=== PATIENT | female | born 1970 | race Caucasian/White ===

== ENCOUNTER 2017-02-17 08:48 | Emergency (ER) | payer OTHER ==
[~2017-02-17] VITALS: Ht 165.1 cm; Wt 80.0 kg
[2017-02-17] MEDS ORDERED: MOTRIN800 MG PO (09:39)
[2017-02-17] MEDS ORDERED: FLEXERIL10 MG PO (09:39)
[2017-02-17] MEDS ORDERED: PERCOCET 5/31 TABLET PO (09:39)
[2017-02-17 10:13] VITALS: BP 140/91
== END 2017-02-17 10:14 | disposition home or self-care (01) ==
LOC: EME 08:48
DX: M54.5 Low back pain (principal); G89.29 Other chronic pain; M51.26 Other intervertebral disc displacement, lumbar region
CPT/HCPCS: 99281; 99283; J1885

== ENCOUNTER 2017-04-23 10:21 | Emergency (ER) | payer OTHER ==
[~2017-04-23] VITALS: Ht 167.6 cm; Wt 79.5 kg
[~2017-04-23 10:21] MED LIST: FLEXERIL10 MG PO; MOTRIN800 MG PO; PERCOCET 5/31 TABLET PO
[2017-04-23] MEDS ORDERED: LIDODERM 5% P1 PATCH TD (15:23)
[2017-04-23 15:33] VITALS: BP 126/88
== END 2017-04-23 15:34 | disposition home or self-care (01) ==
LOC: EME 10:21
DX: R42 Dizziness and giddiness (principal); R20.2 Paresthesia of skin; R41.0 Disorientation, unspecified; T50.905A Adverse effect of unspecified drugs, medicaments and biological substances, initial encounter; Z98.890 Other specified postprocedural states; G89.29 Other chronic pain; M54.5 Low back pain; F17.200 Nicotine dependence, unspecified, uncomplicated
CPT/HCPCS: 70450; 99281; 99284; J1885